=== PATIENT | male | born 1950 | race Caucasian/White ===

== ENCOUNTER 2022-12-07 10:37 | Emergency (ER) | payer MEDICARE, SELFPAY ==
[2022-12-07 10:46] VITALS: BP 129/102; PULSE 135; RESP 20; TEMP 36.2; O2SAT 100; BMI 19.3
[2022-12-07 11:02] VITALS: O2SAT 95
--- NOTE | 2022-12-07 11:04 | ED.GENADULT ---
HPI - General Adult General Chief complaint: Arrhythmia/Palpitations Stated complaint: Afib Time Seen by Provider: 12/07/22 10:38 Source: patient Mode of arrival: ambulatory Limitations: no limitations History of Present Illness HPI narrative: 72-year-old male with a history of atrial fibrillation presents today with concerns of AFib with RVR. Patient had an ablation about a year ago so has not been on any rate controlling medications since. He still takes Coumadin daily. States that last night he felt his heart speed up which caused him to feel slightly lightheaded. He states he went to bed and start still felt very fast it woke up this morning still present so he presented to the ER for evaluation. Upon arrival his pulse is 135 however by the time I go in to see him his pulse is back to normal and he is in normal sinus rhythm. He had a similar episode at the end of October where he felt very fast pulse and felt lightheaded for several hours and then it passed on its own. Related Data Previous Rx's Medication Instructions Recorded sotalol 120 mg tablet (Sotalol AF) 60 mg (1/2 x 120 mg) PO BID #15 12/07/22 tabs Allergies Allergy/AdvReac Type Severity Reaction Status Date / Time amoxicillin Allergy Mild Rash Verified 12/08/21 13:04 Review of Systems Status of ROS: Reports: 10 or more systems reviewed and unremarkable except as noted in History and below [facility] Social History Smoking Status: Former smoker Do you use any of these nicotine containing products: None Second hand tobacco smoke exposure: No How often do you have a drink containing alcohol: never How often do you have six or more drinks on one occasion: Never AUDIT-C Alcohol total score: 0 Non-prescribed substance use: denies use service: No Exam Narrative: Exam Narrative: A thin, well-developed patient in no acute distress. Alert and oriented. Answers questions appropriately. Mood and affect are appropriate. Thoughts are goal oriented and rational. No tangential or magical thinking noted. Patient speaks in full sentences without needing to catch his breath. At the time I go to examine patient his pulse is 82 and regular. HEENT: Normocephalic atraumatic. Pupils are equally round reactive to light. Extraocular muscles are intact. Conjunctivae are moist without any icterus noted. Moist mucous membranes. Posterior pharynx is normal. Neck is soft. Cardiovascular: Heart is regular rate and rhythm S1 and S2 are present without any murmurs. Lungs: Clear to auscultation bilaterally no wheezes rhonchi or rales are appreciated. Patient takes deep breaths without any discomfort. Abdomen: Soft and nontender nondistended with normal bowel sounds. Extremities: Bilateral lower extremities are without edema. Normal DP and PT pulses. Skin: Well perfused without any obvious rashes. Const: Vital Signs, click to edit/add: Vital Signs - 24 hr 12/07/22 10:46 Temperature 97.2 F L Pulse Rate [Apical ] 135 H Respiratory Rate 20 Blood Pressure [Le ft Upper Arm] 129/102 H Pulse Oximetry 100 Oxygen Delivery Me thod Room Air Course Course Hospital Course: IV was established and patient received a L of normal saline. EKG upon arrival showed atrial fibrillation with RVR with a pulse of 133. Repeat EKG showed normal sinus rhythm with a pulse of 70. Labs were drawn and were unremarkable. Cardiology was consulted. Dr. Cardona recommended we restart the patient on sotalol 60 mg p.o. b.i.d.. He does have a follow-up appointment with ict teacher on December 29. He is encouraged to keep this appointment. Patient remained in normal sinus rhythm while he was here. Vital Signs Vital signs: Initial Vital Signs Temperature 97.2 F L 12/07/22 10:46 Temperature Source Temporal Artery Scan 12/07/22 10:46 Pulse Rate 135 H 12/07/22 10:46 Pulse Rhythm Irregular 12/07/22 10:46 Respiratory Rate 20 12/07/22 10:46 Blood Pressure 129/102 H 12/07/22 10:46 Blood Pressure Mean 111 H 12/07/22 10:46 Blood Pressure Position Supine 12/07/22 10:46 Pulse Oximetry 100 12/07/22 10:46 Oxygen Delivery Method Room Air 12/07/22 10:46 Vital Signs Temperature 97.2 F L 12/07/22 10:46 Pulse Rate 135 H 12/07/22 10:46 Respiratory Rate 20 12/07/22 10:46 Blood Pressure 129/102 H 12/07/22 10:46 Pulse Oximetry 100 12/07/22 10:46 Oxygen Delivery Method Room Air 12/07/22 10:46 Temperature 97.2 F L 12/07/22 10:46 Pulse Rate 135 H 12/07/22 10:46 Respiratory Rate 20 12/07/22 10:46 Blood Pressure 129/102 H 12/07/22 10:46 Pulse Oximetry 100 12/07/22 10:46 Oxygen Delivery Method Room Air 12/07/22 10:46 Medical Decision Making MDM Narrative Medical decision making narrative: 72-year-old male with paroxysmal AFib with RVR, back in normal sinus rhythm. Plan per cardiology recommendation per above. Medical Records Medical records reviewed: Yes I reviewed the patient's medical records Lab Data Lab results reviewed: Yes I reviewed the patient's lab results Labs: Lab Results 12/07/22 Range/Units 11:17 WBC 8.01 (4.50-11.00) K/uL RBC 4.64 (4.30-5.90) m/uL Hgb 14.4 (13.5-17.5) gm/dL Hct 43.8 (37.0-53.0) % MCV 94 (80-100) fL MCH 31 (26-34) pg MCHC 33 (32-36) gm/dL RDW Coeff of Dominic 12.5 (11.5-15.5) % Plt Count 247 (140-440) K/uL Neut % (Auto) 75.3 H (42.0-72.0) % Lymph % (Auto) 15.2 L (20-44) % [place] % (Auto) 9.1 (0.0-11.0) % Eos % (Auto) 0.1 (0.0-7.0) % Baso % (Auto) 0.2 (0.0-3.0) % Neut # (Auto) 6.00 (1.7-7.0) K/uL Lymph # (Auto) 1.20 (0.90-2.90) K/uL [place] # (Auto) 0.70 (0.00-0.90) K/UL Eos # (Auto) 0.01 (0.00-0.50) K/uL Baso # (Auto) 0.02 (0.00-0.30) K/uL Abs Immat Gran (auto) 0.01 (0.00-0.30) K/uL Imm/Tot Granulo (auto) 0.1 % INR 2.09 H (0.91-1.10) Sodium 136 (135-149) mmol/L Potassium 4.2 (3.6-5.1) mmol/L Chloride 103 (96-114) mmol/L Carbon Dioxide 24 (20-32) mmol/L BUN 21 (7-30) mg/dL Creatinine 0.9 (0.5-1.5) mg/dL Estimated Creat Clear 63.31 Estimated GFR 90 ml/min Glucose 117 H (60-115) mg/dL Calcium 9.2 (8.4-10.6) mg/dL Troponin I < 0.01 L (0.01-0.04) ng/mL ECG Data Attestation: I personally reviewed and interpreted this ECG as follows: Discharge Plan Discharge Clinical Impression: Atrial fibrillation with rapid ventricular response Patient Disposition: Home, Self-Care Condition: Improved Additional Instructions: Per cardiology's recommendation we will restart your sotalol at 60 mg twice a day. You do have an appointment with Cardiology scheduled for December 29 at 2:30 p.m. in their [place] office-please keep this appointment. You should bring copies of the EKGs you had done today to this appointment If you go back into atrial fibrillation in you feel short of breath, denies chest pain or become dizzy you should return to the ER. Activity Level: No Restrictions Discharge Diet: Regular Prescriptions: New sotalol [Sotalol AF] 120 mg tablet 60 mg PO BID Qty: 15 0RF Follow Up/Referrals: Peter Cote MD [Primary Care Provider] - Stand Alone Forms: [facility] Laboratory Info Instructions
[2022-12-07 11:20] LABS: Basophils Absolute Auto 0.02 K/uL (0.00-0.30); Basophils Percent Auto 0.2 % (0.0-3.0); Eosinophils Absolute Auto 0.01 K/uL (0.00-0.50); Eosinophils Percent Auto 0.1 % (0.0-7.0); Hematocrit 43.8 % (37.0-53.0); Hemoglobin* 14.4 gm/dL (13.5-17.5); Immature Granulocytes Abs Auto 0.01 K/uL (0.00-0.30); Immature Granulocytes Pct Auto 0.1 %; Lymphocytes Percent Auto 15.2 % (20-44); Mean Corpuscular HGB Conc 33 gm/dL (32-36); Mean Corpuscular Hemoglobin 31 pg (26-34); Mean Corpuscular Volume 94 fL (80-100); Monocytes Percent Auto 9.1 % (0.0-11.0); Neutrophils Percent Auto 75.3 % (42.0-72.0); Platelet Count* 247 K/uL (140-440); RDW Coefficient of Variation % 12.5 % (11.5-15.5); Red Blood Count 4.64 m/uL (4.30-5.90); White Blood Count* 8.01 K/uL (4.50-11.00)
[2022-12-07 11:24] LABS: Slide Review Reflex No
[2022-12-07 11:35] LABS: Chloride* 103 mmol/L (96-114); Potassium* 4.2 mmol/L (3.6-5.1); Sodium* 136 mmol/L (135-149)
[2022-12-07 11:38] LABS: Creatinine* 0.9 mg/dL (0.5-1.5); Est. Creatinine Clearance* 63.31; Estimated Glomerular Filt Rate 90 ml/min; INR 2.09 (0.91-1.10); Prothrombin Time 24.6 Seconds
[2022-12-07 11:39] LABS: Blood Urea Nitrogen* 21 mg/dL (7-30); Calcium* 9.2 mg/dL (8.4-10.6); Carbon Dioxide* 24 mmol/L (20-32); Glucose* 117 mg/dL (60-115)
[2022-12-07 11:54] LABS: Troponin I* < 0.01 ng/mL (0.01-0.04)
== END 2022-12-07 12:10 | disposition home or self-care (01) ==
PROVIDERS: Emergency Provider Family Medicine; PCP Surgery
DX: I48.91 Unspecified atrial fibrillation (principal)
CPT/HCPCS: 36415; 80048; 84484; 85025; 85610; 93005; 94761; 99284